=== PATIENT | female | born 1960 | race Caucasian/White ===

== ENCOUNTER 2017-05-20 20:44 | Emergency (ER) | payer SELFPAY ==
[~2017-05-20 20:44] MED LIST: DOXY100T PO; ESTR.3 PO; FLUO20SO3 PO; GEMF600T PO; GLIP5 PO; GLUCTAB PO; LEVA500T PO; LEVEMIR SQ; NORV2.5T11 PO; OMPR20CCR PO; PRED20 PO; VENTAER INH
== END 2017-05-20 21:11 | disposition left against medical advice (07) ==
LOC: NED 20:44
DX: R68.89 Other general symptoms and signs (principal)
CPT/HCPCS: 99281